=== PATIENT | female | born 1980 | race Two or more races ===

== ENCOUNTER 2016-06-22 21:29 | Inpatient (IN) | payer MEDICAID ==
[~2016-06-22] VITALS: Ht 157.5 cm; Wt 67.2 kg
[2016-06-22 22:04] LABS: Basophils # (auto) 0 uL; Eosinophils # (auto) 0 uL; Eosinophils % (auto) 0.2 % (0.0-7.0); Hemoglobin 14.4 g/dL (12.2-16.2); Lymphocytes # (auto) 1.3 uL; Monocytes # (auto) 0.5 uL; Monocytes % (auto) 4.7 % (0.0-12.0); SUSPECT VIEW TRANSMISSION
[2016-06-22 22:08] LABS: Basophils % (auto) 0.3 % (0.0-2.0); Hematocrit 41.6 % (36.0-46.0); Lymphocytes % (auto) 13.3 % (10.0-50.0); Mean Corpuscular Hemoglobin 29.8 pg (28.0-32.0); Mean Corpuscular Hgb Conc. 34.6 g/dL (32.0-36.0); Mean Platelet Volume 9.9 fL (7.4-10.4); Neutrophils % (auto) 81.5 % (37.0-80.0); Platelet Count (auto) 226 10^3/uL (140-450); Red Cell Distribution Width 12.5 % (11.6-16.0); White Blood Cell 9.9 10^3/uL (4.4-10.8)
[2016-06-22 22:15] LABS: Urine Bilirubin Negative (Negative); Urine Color Yellow (Yellow); Urine Glucose Normal (Normal); Urine Mucus FEW (None Seen); Urine Nitrite Negative (Negative); Urine RBC 9 /hpf (0 - 4); Urine Squamous Epithelial Cell FEW /hpf (<5); Urine Urobilinogen Normal (Negative)
[2016-06-22 22:17] LABS: Urine Blood 1+ /uL (Negative); Urine Ketone 2+ (Negative)
[2016-06-22 22:38] LABS: Albumin 4.2 g/dL (3.4-5.0); BUN/Creatinine Ratio 19.7; Bilirubin, Total 0.4 mg/dL (0.2-1.0); Calcium 8.8 mg/dL (8.5-10.1); Total Protein 8.1 g/dL (6.4-8.2)
[2016-06-22] MEDS ORDERED: HYDROmorphone HCL 2 MG/ML VL IV ONE (23:00)
[2016-06-22] MEDS ORDERED: ONDANSETRON HCL 4 MG/2 ML VIAL IV ONE (23:00)
[2016-06-23] MEDS ORDERED: POTASSIUM CHL 20MEQ/100ML 100 ML IV ONE (01:45)
[2016-06-23] MEDS ORDERED: IOHEXOL 300 MG/ML 100ML BOTTLE IJ ONE (02:42)
[2016-06-23] MEDS ORDERED: ACETAMINOPHEN 325 MG TAB PO PRN (03:00)
[2016-06-23] MEDS ORDERED: HYDROcodone-ACET 5/325MG TAB PO PRN (03:00)
[2016-06-23] MEDS ORDERED: MORPHINE SULF INJ 2 MG/ML SYRINGE 1ML IV PRN (03:00)
[2016-06-23] MEDS ORDERED: TEMAZEPAM 15 MG CAP PO PRN (03:00)
[2016-06-23] MEDS ORDERED: PANTOPRAZOLE SODIUM 40 MG/10 ML VIAL IV ONE (03:00)
[2016-06-23] MEDS ORDERED: cloNIDine HCL 0.1 MG TAB PO ONE (03:00)
[2016-06-23] MEDS ORDERED: ONDANSETRON HCL 4 MG/2 ML VIAL IV PRN (03:00)
[2016-06-23] MEDS: SODIUM CHLORIDE 0.9% 1,000 ML IV SCH ×2 (03:18→20:39)
[2016-06-23] MEDS ORDERED: hydrALAZINE HCL 20 MG/ML VL IV ONE (04:15)
[2016-06-23] MEDS ORDERED: LABETALOL HCL 5 MG/ML 4ML SYRINGE IV ONE (06:15)
[2016-06-23 06:44] LABS: Basophils # (auto) 0 uL; Eosinophils # (auto) 0 uL; Hematocrit 40.9 % (36.0-46.0); Hemoglobin 14.1 g/dL (12.2-16.2); Lymphocytes # (auto) 0.9 uL; Mean Corpuscular Hemoglobin 29.8 pg (28.0-32.0); Mean Corpuscular Hgb Conc. 34.6 g/dL (32.0-36.0); Mean Corpuscular Volume 86.2 fL (80.0-100.0); Mean Platelet Volume 9.5 fL (7.4-10.4); Monocytes # (auto) 0.4 uL; Monocytes % (auto) 3.8 % (0.0-12.0); Neutrophils # (auto) 10.4 uL; Neutrophils % (auto) 88.2 % (37.0-80.0); Platelet Count (auto) 221 10^3/uL (140-450); Red Cell Distribution Width 12.5 % (11.6-16.0); White Blood Cell 11.8 10^3/uL (4.4-10.8)
[2016-06-23] MEDS ORDERED: HYDROmorphone HCL 2 MG/ML VL IV ONE (06:45)
[2016-06-23] MEDS ORDERED: LABETALOL HCL 5 MG/ML 4ML SYRINGE IV PRN (09:00)
[2016-06-23] MEDS: cloNIDine HCL 0.1 MG TAB PO PRN (09:10)
[2016-06-23] MEDS: PANTOPRAZOLE SODIUM 40 MG/10 ML VIAL IV SCH (10:39)
[2016-06-23 12:14] VITALS: BP 135/94
[2016-06-23] MEDS ORDERED: POTASSIUM CHLORIDE 40 MEQ, LIDOCAINE 1% (LOCAL ANESTH.) 4 ML in SODIUM CHL 0.9% 250 ML IV ONE (14:15)
[2016-06-23 17:00] VITALS: BP 122/83
[2016-06-23 18:45] LABS: INR 1.08 (0.9-1.15); Prothrombin Time 11.1 sec (9.37-12.3)
[2016-06-23 22:00] VITALS: BP 124/79
[2016-06-24 05:00] VITALS: BP 133/85
[2016-06-24 06:29] LABS: Basophils # (auto) 0 uL; Basophils % (auto) 0.4 % (0.0-2.0); Eosinophils # (auto) 0.1 uL; Eosinophils % (auto) 1.4 % (0.0-7.0); Hematocrit 37.2 % (36.0-46.0); Hemoglobin 13.1 g/dL (12.2-16.2); Lymphocytes # (auto) 2.1 uL; Lymphocytes % (auto) 27.1 % (10.0-50.0); Mean Corpuscular Hemoglobin 30.7 pg (28.0-32.0); Mean Corpuscular Volume 87.6 fL (80.0-100.0); Mean Platelet Volume 9.8 fL (7.4-10.4); Monocytes # (auto) 0.5 uL; Monocytes % (auto) 6.3 % (0.0-12.0); Neutrophils % (auto) 64.8 % (37.0-80.0); Platelet Count (auto) 182 10^3/uL (140-450); Red Cell Distribution Width 12.8 % (11.6-16.0); White Blood Cell 7.8 10^3/uL (4.4-10.8)
[2016-06-24 06:38] LABS: INR 1.09 (0.9-1.15); Partial Thromboplastin Time 24.7 sec (22.64-33.71); Prothrombin Time 11.2 sec (9.37-12.3)
[2016-06-24 06:58] LABS: BUN/Creatinine Ratio 12.1; Calcium 7.8 mg/dL (8.5-10.1)
[2016-06-24 07:45] VITALS: BP 152/80
[2016-06-24 07:48] LABS: Bilirubin, Total 0.4 mg/dL (0.2-1.0); Potassium 4.1 mmol/L (3.5-5.1); Total Protein 6.2 g/dL (6.4-8.2)
[2016-06-24 09:00] VITALS: BP 152/80
[2016-06-24] MEDS: PANTOPRAZOLE SODIUM 40 MG/10 ML VIAL IV SCH (09:55)
[2016-06-24] MEDS ORDERED: BUPIVACAINE W/ EPINEPH 0.25% INJ 50ML MDV ONE (13:40)
[2016-06-24] MEDS ORDERED: BUPIVACAINE 0.25% INJ 50ML VIAL ONE (13:40)
[2016-06-24] MEDS ORDERED: ceFAZolin 1GM/50ML D5W 50 ML IV ONE (13:43)
[2016-06-24] MEDS ORDERED: DEXAMETHASONE SOD PHOS 10MG/1ML VIAL INJ IV ONE (14:13)
[2016-06-24] MEDS ORDERED: GLYCOPYRROLATE 0.2 MG/ML 1ML VIAL IV ONE (14:13)
[2016-06-24] MEDS ORDERED: ONDANSETRON HCL 4 MG/2 ML VIAL IV ONE ×2 (14:13→16:15)
[2016-06-24] MEDS ORDERED: NEOSTIGMINE 1 MG/ML INJ (10mg/10ML VIAL) IV ONE (14:13)
[2016-06-24] MEDS ORDERED: MIDAZOLAM HCL 1MG/1ML-2 ML VIAL ONE (14:15)
[2016-06-24] MEDS ORDERED: fentaNYL CITRATE 100 MCG/2 ML VL ONE ×2 (14:15→14:42)
[2016-06-24] MEDS ORDERED: ROCURONIUM 10MG/ML 10ML VIAL IV ONE (14:16)
[2016-06-24] MEDS ORDERED: PROPOFOL 100 ML IV ONE (16:01)
[2016-06-24] MEDS ORDERED: PROPOFOL 100 ML IV SCH (16:04)
[2016-06-24] MEDS ORDERED: ePHEDrine SULFATE 50 MG/ML AMP IV PRN (16:15)
[2016-06-24] MEDS ORDERED: hydrALAZINE HCL 20 MG/ML VL IV PRN (16:15)
[2016-06-24] MEDS ORDERED: HYDROmorphone HCL 2 MG/ML VL IV PRN (16:15)
[2016-06-24 22:00] VITALS: BP 145/97
[2016-06-25] MEDS: SODIUM CHLORIDE 0.9% 1,000 ML IV SCH (05:05)
[2016-06-25 05:30] VITALS: BP 157/113
[2016-06-25 06:07] LABS: Basophils # (auto) 0 uL; Eosinophils # (auto) 0 uL; Hemoglobin 12.9 g/dL (12.2-16.2); Lymphocytes # (auto) 0.9 uL; Lymphocytes % (auto) 9.4 % (10.0-50.0); Mean Corpuscular Hemoglobin 29.9 pg (28.0-32.0); Mean Corpuscular Hgb Conc. 33.9 g/dL (32.0-36.0); Mean Corpuscular Volume 88.2 fL (80.0-100.0); Mean Platelet Volume 9.9 fL (7.4-10.4); Monocytes # (auto) 0.5 uL; Monocytes % (auto) 4.8 % (0.0-12.0); Neutrophils % (auto) 85.8 % (37.0-80.0); Platelet Count (auto) 192 10^3/uL (140-450); Red Cell Distribution Width 12.5 % (11.6-16.0); White Blood Cell 9.4 10^3/uL (4.4-10.8)
[2016-06-25 06:34] LABS: Albumin 3.2 g/dL (3.4-5.0); BUN/Creatinine Ratio 16.1; Bilirubin, Total 0.4 mg/dL (0.2-1.0); Calcium 8.3 mg/dL (8.5-10.1); Potassium 3.8 mmol/L (3.5-5.1); Total Protein 6.7 g/dL (6.4-8.2)
[2016-06-25 08:18] VITALS: BP 154/94
[2016-06-25] MEDS: PANTOPRAZOLE SODIUM 40 MG/10 ML VIAL IV SCH (09:16)
[2016-06-25 13:00] VITALS: BP 134/92
[2016-06-25 16:45] VITALS: BP 171/101
[2016-06-25] MEDS: cloNIDine HCL 0.1 MG TAB PO PRN (16:59)
[2016-06-25 17:43] VITALS: BP 155/89
== END 2016-06-25 19:00 | disposition home or self-care (01) | DRG 263 ==
LOC: ER 21:32 → OVERFLOW 21:33 → EAST 06-23 12:09 → CENTRAL 06-23 14:47
PROVIDERS: ADMIT Nurse Practitioner; ATTEND Hospitalist
PROC: 0FT44ZZ Resection of Gallbladder, Percutaneous Endoscopic Approach (ICD-10-PCS; principal; 2016-06-24 14:13)
DX: K80.00 Calculus of gallbladder with acute cholecystitis without obstruction (principal); E87.6 Hypokalemia
CPT/HCPCS: 36415; 74177; 76705; 80053; 80061; 81001; 81025; 82150; 82962; 83690; 85025; 85610; 85730; 86850; 86900; 86901; 94761; 96361; 96374; 96375; C9113; J0690; J1100; J2001; J2250; J2405; J2704; J3480; J3490